=== PATIENT | female | born 1985 | race Caucasian/White ===

== ENCOUNTER 2018-03-22 10:17 | Observation (INO) | payer OTHER ==
[2018-03-22] MEDS ORDERED: LACTATED RINGER'S 1000ML 500 ML IV ONE (13:46)
[2018-03-22] MEDS ORDERED: LACTATED RINGER'S 1000ML 1,000 ML IV SCH (13:46)
[2018-03-22] MEDS ORDERED: PATIENT'S ALLERGY INFO NEEDS ENTERED SCH (14:00)
[2018-03-22] MEDS ORDERED: PRENTAB65 PO (14:13)
[2018-03-22] MEDS ORDERED: MoRPHine SULFATE 2 MG/ML CARP ONE (14:52)
[2018-03-22] MEDS ORDERED: ALBUTEROL 0.083% NEBU SOLN 3 ML VIAL INH STA (15:08)
--- NOTE | 2018-03-22 15:27 | History and Physical ---
History & Physical Date & Time of Service: March 22, 2018 at 15:10 Chief Complaint: Pre Term, Abd Pain Primary Care Physician: No Doctor, Assigned History of Present Illness Source: patient She is a 32-year-old female and 34 week recently traveling from [facility] to [facility] [[email or web address] she came in 2 days ago after a flight journey of 3+6 hours. She was admitted to OBGYN unit with them uterine contraction for monitor. She does not have any past medical problems and no complication with her . At around 2:15 PM she went to the bathroom and on the way back to bed she complained to have sudden center chest pain with cough and moderate to severe shortness of breath She complained the pain to be severe, more than 5 out of 10 and radiated to the left shoulder. She was hemodynamically stable and her saturation remained 100% on room air. She was still coughing but no wheezing heard. At that time medicine was consulted and she will have studies to rule out pulmonary embolism. The case was discussed with the patient, the and the [facility] physician. She was given IV Morphine,Nebulized Bronchodilators and Oxygen. Past Medical/Surgical History Medical Problems: (1) Social History Smoking Status: Never Smoker Smokeless Tobacco Use: No Alcohol Use: none Drug Use: none Marital Status: Housing status: lives with significant other Allergies Coded Allergies: No Known Allergies (Unverified , 03/22/18) Home Medications Scheduled Multivit (), 1 TAB PO DAILY Review of Systems Respiratory: + cough, + shortness of breath, + dyspnea at rest Cardiovascular: + chest pain Abdomen: + pain (Labor pain) Physical Exam General Appearance: + moderate distress Head: normocephalic Eyes: normal inspection ENT: normal ENT inspection Neck: supple Respiratory/Chest: + respiratory distress, + decreased breath sounds, + accessory muscle use Cardiovascular: regular rate, rhythm, no edema, no gallop Abdomen/GI: normal bowel sounds, + distended (34 weeks ) Extremities/Musculoskelatal: normal inspection Neurologic/Psych: normal mood/affect Skin: normal color Lymphatic: no adenopathy Diagnostics Laboratory Results Results Past 24 Hours Test 03/22/18 09:50 03/22/18 15:07 Range/Units Urine Color YELLOW Urine Appearance CLOUDY CLEAR Urine pH 5.5 4.5-7.5 Urine Specific [place] 1.021 1.000-1.030 Urine Protein NEG NEG Urine Glucose (UA) 1+ NEG Urine Ketones NEG NEG Urine Occult Blood NEG NEG Urine Nitrite NEG NEG Urine Bilirubin NEG NEG Urine Urobilinogen NEG NEG Urine Leukocyte Esterase LARGE NEG Urine WBC (Auto) >30 0-5 /hpf Urine RBC (Auto) 0-4 0-4 /hpf Urine Hyaline Casts (Auto) 0-5 /lpf Urine Epithelial Cells (Auto) >30 0-5 /lpf Urine Bacteria (Auto) 2+ NEG Urine Pathogenic Casts 0 /lpf Diagnostic Radiology CTA- Impression Assessment and Plan SUDDEN SHORTNESS OF BREATH WITH CHEST PAIN Recently she has had 9 hours of flight journey and she is 34 weeks Pulmonary embolism has to be ruled out She was started with intravenous morphine, nebulized bronchodilator for symptomatic management PE study his pending right now She may need echocardiogram as well If she is positive for pulmonary embolism rule up to start heparin IV CTA negative for any PE-Will get US to r/o DVT EKG and Troponin-normal:: will check repeat Trop in 6 hours IF negative will let her go 34 WEEKS Normal Came in with the uterine contractions Management as per [facility] The case was discussed with the patient,The and the OBGYN physician Likely to be discharged this evening Resuscitation Status VTE Prophylaxis Will order VTE Prophylaxis: No Reason for no VTE drug order: Treatment not indicated Reason no Mechanical VTE Order: Treatment not indicated (Patient is ambulant)
[2018-03-22 15:31] LABS: HEMATOCRIT 34.4 % (37-47); HEMOGLOBIN 11.7 g/dL (12.0-16.0); MEAN CELL VOLUME 82.1 fL (80-100); MEAN CORPUSCULAR HEMOGLOBIN 27.9 pg (25-34); MEAN PLATELET VOLUME 10.3 fL (7.4-10.4); PLATELET COUNT 217 K/uL (130-400); RED CELL DISTRIBUTION WIDTH CV 13.9 % (11.5-14.5); RED CELL DISTRIBUTION WIDTH SD 41.8 fL (36.4-46.3)
[2018-03-22 15:48] LABS: BLOOD UREA NITROGEN 5 mg/dl (7-18); CALCIUM 8.4 mg/dl (8.5-10.1); CARBON DIOXIDE 24 mmol/L (21-32); GLUCOSE 74 mg/dl (70-99); POTASSIUM 3.8 mmol/L (3.5-5.1); SODIUM 138 mmol/L (136-145)
[2018-03-22 15:52] VITALS: PULSE 99; O2SAT 100
--- NOTE | 2018-03-22 16:10 | HISTORY & PHYSICAL EXAMINATION ---
DATE OF ADMISSION: 03/22/2018 HISTORY OF PRESENT ILLNESS: The patient is a 32-year-old G2, P1 at 34 weeks . The patient has received care in [place]. She arrived in the [facility] 2 days ago and today was having irregular abdominal contractions, she therefore presented to labor and delivery. On arrival to labor and delivery, she has no shortness of breath, no chills, no fever.No pain in lower extremities heart rate is category 1. She has irregular contractions. Pelvic exam shows she is closed, thick, and she was 50% effaced and posterior. The patient is admitted to labor and delivery for observation. The patient reports her course has been unremarkable. She received the care in [place]. She plans, however, on delivery in the [facility]. She has not been able to get an office appointment with a group since arrival. PAST MEDICAL HISTORY: The patient denies diabetes, asthma, or any other medical problems. PAST SURGICAL HISTORY: The patient has had laparoscopy. SOCIAL HISTORY: The patient denies tobacco, drug, or alcohol use. FAMILY HISTORY: Noncontributory. ALLERGIES: No known drug allergies. PHYSICAL EXAMINATION: GENERAL: A well-developed, well-nourished white female, in no acute distress. HEART: S1, S2, regular rhythm and rate. LUNGS: Clear to auscultation bilaterally. ABDOMEN: Gravid. heart rate category 1. PELVIC EXAMINATION: Cervix is closed, soft, 50% effaced, posterior. EXTREMITIES: No cyanosis, clubbing, or edema. No erythema or pain in popliteal regions of either leg ASSESSMENT AND PLAN: This is a 32-year-old G2, P1 at 34 weeks. The patient received care in [place]. She arrived to the [facility] 2 days ago. She is here for irregular abdominal contractions. The patient is admitted and being observed in labor and delivery for contractions. She has received p.o. hydration. We will continue to monitor the patient for contractions. AYESHA
[2018-03-22] MEDS ORDERED: OPTIRAY 320 IV PRN (16:30)
--- NOTE | 2018-03-22 16:42 | DIAGNOSTIC IMAGING REPORT ---
CHEST CTA for PULMONARY ARTERIES CT DOSE: 261.04 mGy.cm HISTORY: Atypical chest pain 34 weeks . TECHNIQUE: Multiaxial CT images of the chest were performed following the intravenous administration of contrast to evaluate the pulmonary arteries. Maximal intensity projection images were also obtained. A dose lowering technique was utilized adhering to the principles of ALARA. COMPARISON STUDY: None. FINDINGS: Normal caliber thoracic aorta with no evidence for dissection. Questionable filling defect seen within a proximal segmental pulmonary artery of the left lower lobe on image 95. This is likely due to motion artifact. No definite filling defects seen within the pulmonary arteries to suggest pulmonary embolus. There is mild respiratory motion artifact resulting in suboptimal evaluation of some of the pulmonary arteries. The heart is normal in size. No pleural or pericardial effusions. The visualized liver and spleen are unremarkable. No mediastinal or hilar lymphadenopathy. No fractures within the visualized osseous structures. No pneumothorax. The central airways are patent. No focal lung consolidations to suggest pneumonia. IMPRESSION: No evidence for pulmonary embolus. Electronically signed by: Lee Green M.D. 03/22/2018 4:41 PM Dictated Date/Time: 03/22/2018 4:25 PM
[2018-03-22] MEDS ORDERED: IV FLUIDS COMPLETED PRN (20:00)
--- NOTE | 2018-03-22 20:38 | DIAGNOSTIC IMAGING REPORT ---
BILATERAL LOWER EXTREMITY VENOUS DOPPLER HISTORY: Short of breath. Assess for DVT. 34 weeks . Leg swelling. COMPARISON STUDY: None. FINDINGS: There is normal compressibility, flow, and augmentation within the bilateral lower extremity deep venous systems. IMPRESSION: No DVT within the right or left lower extremity. Electronically signed by: Lee Green M.D. 03/22/2018 8:37 PM Dictated Date/Time: 03/22/2018 8:37 PM
--- NOTE | 2018-03-22 21:38 | Progress Note ---
Progress Note Date of Service March 22, 2018. Progress Note Pt evaluated by hospitalist labs ad radiologist studies done FHR CAT1 labs reviewed and pt disch home with instructions
--- NOTE | 2018-03-22 21:40 | Discharge Instructions ---
Discharge Instructions Date of Service March 22, 2018. Admission Reason for Admission: Discharge Discharge Diagnosis / Problem: Discharge Goals Goal(s): Specific Goal(s) Activity Recommendations Activity Limitations: as noted below ACTIVITY RECOMMENDATIONS: See Labor Sheet. SPECIAL CARE INSTRUCTIONS: Call Doctor if: * Regular contractions every 5 minutes or greater than contractions in one hour. * Bleeding * Water breaks or is leaking * Decreased movement * Fever >100.4 degrees F * Pain not relieved by routine measures or pain medication ordered. FOLLOW UP VISIT: Return to Labor and Delivery on for /call for appointment time . Follow-up Visit with: When: . Current Hospital Diet Patient's current hospital diet: Discharge Diet Recommended Diet: Regular Diet Pending Studies Studies pending at discharge: no Medical Emergencies . Who to Call and When: Medical Emergencies: If at any time you feel your situation is an emergency, please call 911 immediately. . Non-Emergent Contact Non-Emergency issues call your: Specialist . . "Provider Documentation" section prepared by Margarito Thompson. .
== END 2018-03-22 22:02 | disposition home or self-care (01) ==
LOC: C.OPB 10:17 → C.LD 10:19 → C.OPB 19:34
PROVIDERS: ADMIT Obstetrics & Gynecology; ATTEND Obstetrics & Gynecology
DX: O60.03 Preterm labor without delivery, third trimester (principal); Z3A.34 34 weeks gestation of pregnancy; R07.9 Chest pain, unspecified; R06.02 Shortness of breath